=== PATIENT | male | born 1965 | race Caucasian/White ===

== ENCOUNTER → 2017-04-12 | Outpatient (CLI) | payer OTHER ==
--- NOTE | 2017-04-12 17:42 | PCVCIMAG ---
APPROVED REPORT Exam: Stress Echocardiogram Indication: Chest pain, Fam hx CAD, tobacco use, elevated calcium score Patient Location: Echo lab Stress Nurse: Tracy Bautista RN Status: routine Ht: 5 ft 11 in HR: 76 bpm BP: 136/90 mmHg Rhythm: NSR Procedure The patient underwent an Exercise Stress Test using the Saravanan Protocol. Blood pressure, heart rate, and EKG were monitored. An Echocardiogram was performed by nuclear fuel processing technician in four stages in quad fashion. At peak stress, four selected images were obtained and placed side by side with resting images for comparison. Stress Test Details Stress Test: Exercise stress testing was performed using a Saravanan protocol. HR Resting HR: 76 bpmMax Heart Rate (APMHR): 169 bpm Max HR Achieved: 166 bpmTarget HR (85% APMHR): 143 bpm % of APMHR: 98 Recovery HR: 96 bpm HR response to stress: Normal HR response to stress BP Resting BP: 136/90 mmHg Max BP: 220/84 mmHg Recovery BP: 164/78 mmHg ECG Resting ECG: Sinus Rhythm Stress ECG: Sinus Rhythm ST Change: Normal Arrhythmia: Rare isolated PVCs Recovery ECG: Sinus Rhythm Recovery ST Change: Normal Recovery Arrhythmia: None Clinical Reason for Termination: Maximal effort Stress Symptoms: Chest tightness at rest that resolved completely with exertion Exercise duration: 11 min 3 sec Highest Stage Achieved: Stage 4: 4.2 mph at 16% grade. Exercise capacity: 13.7 METs Overall Exercise Capacity for Age: Good Pre-Stress Echo The resting Echocardiogram showed normal left ventricular contractility with an estimated Ejection Fraction of about >55%. Normal wall motion in all segments on baseline images. Post-Stress Echo The stress Echocardiogram showed normal left ventricular contractility with an estimated Ejection Fraction of about 65%. Normal augmentation of wall motion in all segments on post stress images. Clinical No clinical or ECG evidence for ischemia. Conclusion Clinical Response: Non-ischemic Exercise Capacity: Average Stress ECG Response: Non-ischemic Stress Echo Images: Non-ischemic The left ventricle is normal in size and wall thickness in both the rest and stress images. Other Information Study Quality: Adequate <Conclusion> The left ventricle is normal in size and wall thickness in both the rest and stress images.
== END | disposition home or self-care (01) ==
LOC: PCVCIMAG 14:19
PROVIDERS: ATTEND Internal Medicine Cardiovascular Disease
DX: R07.9 Chest pain, unspecified (principal); E83.52 Hypercalcemia; Z72.0 Tobacco use; Z82.49 Family history of ischemic heart disease and other diseases of the circulatory system
CPT/HCPCS: 93325; 93351